=== PATIENT | male | born 1960 | race African-American/Black ===

== ENCOUNTER 2017-01-07 16:26 | Emergency (ER) | payer BC, SELFPAY ==
[2017-01-07] MEDS ORDERED: Morphine Sulfate 2 MG/ML SYRINGE ONE (16:37)
[2017-01-07] MEDS ORDERED: HYDROcodone/Acetaminophen 5/325 mg Tablet ONE (16:37)
--- NOTE | 2017-01-07 17:10 | RAD ---
TWO VIEWS OF THE LEFT THUMB: 01/07/17 INDICATION: Cut left thumb on a table saw. FINDINGS: There is soft tissue laceration involving the palmar aspect of the thumb distal phalanx. No retained foreign body is evident. A small suspected sesamoid is seen at the IP joint. No definite displaced fracture is evident. There is a small radioopaque density seen within the soft tissues adjacent to t he palmar and radial aspect of the index finger proximal phalanx which may reflect a retained metall ic foreign body. IMPRESSION: 1. Soft tissue laceration of the left thumb. No definite acute fracture is demonstrated. 2. Suspected radiopaque foreign body within the soft tissues of the left index finger base. POS: [facility]
[2017-01-07] MEDS ORDERED: Bupivacaine 0.5% 10 ML VIAL ONE (17:15)
[2017-01-07] MEDS ORDERED: Sodium Chloride 0.9% 1,000 ML ONE (17:36)
[2017-01-07] MEDS ORDERED: Ibuprofen 800 MG TAB ONE (18:05)
[2017-01-07] MEDS ORDERED: Cephalexin 500 MG CAP ONE (18:06)
== END 2017-01-07 18:46 | disposition home or self-care (01) ==
LOC: NAV ERS 16:26
DX: S61.012A Laceration without foreign body of left thumb without damage to nail, initial encounter (principal); W45.8XXA Other foreign body or object entering through skin, initial encounter
CPT/HCPCS: 12042; 94760; 96360; 96372; J2270; J3490; J7050

== ENCOUNTER 2017-01-10 17:15 | Emergency (ER) | payer SELFPAY | END 2017-01-10 18:33 | disposition home or self-care (01) | LOC: NAV ERS 17:15 | DX: S61.012D Laceration without foreign body of left thumb without damage to nail, subsequent encounter (principal); Z79.2 Long term (current) use of antibiotics; Z79.891 Long term (current) use of opiate analgesic; W45.8XXD Other foreign body or object entering through skin, subsequent encounter | CPT/HCPCS: 99282 ==

== ENCOUNTER 2020-08-25 18:49 | Emergency (ER) | payer OTHER ==
[~2020-08-25 18:49] MED LIST: Iopamidol 370 76% 100 ML VIAL ONE
[2020-08-25 19:39] LABS: #Basophils 0.1 thou/uL (0.0-0.2); #Eosinphils 0.1 thou/uL (0.0-0.7); #Monocytes 0.4 thou/uL (0.11-0.59); #Neutrophils 1.7 thou/uL (1.40-6.50); %Lymphocytes 46.5 % (21.0-51.0); %Monocytes 10.4 % (0.0-10.0); %Neutrophils 39.2 % (42.0-75.0); Hemoglobin 13.3 g/dL (14.0-18.0); Mean Corpuscular HGB CONC 31.6 g/dL (32.0-36.0); Mean Corpuscular Hemoglobin 27.1 pg (27.0-31.0); Mean Corpuscular Volume 85.8 fL (78.0-98.0); Mean Platelet Volume 6.6 fL (7.4-10.4); Platelet Count 296 thou/uL (130-400); RBC Distribution Width 12.7 % (11.5-14.5); Red Blood Cell (RBC) Count 4.92 mill/uL (4.70-6.10); White Blood Cell (WBC) Count 4.2 thou/uL (4.8-10.8)
[2020-08-25 19:53] LABS: ALT (SGPT) 20 U/L (8-55); AST (SGOT) 23 U/L (5-34); Albumin 3.7 g/dL (3.4-4.8); Alkaline Phosphatase 74 U/L (40-110); Anion Gap 13 mmol/L (10-20); BUN (Urea Nitrogen) 17 mg/dL (8.4-25.7); Bilirubin, Total 0.5 mg/dL (0.2-1.2); Calc. Creatinine Clearance 0 mL/min (70-130); Calcium 8.7 mg/dL (7.8-10.44); Carbon Dioxide 21 mmol/L (23-31); Chloride 107 mmol/L (98-107); Glucose 103 mg/dL (80-115); Potassium 4.4 mmol/L (3.5-5.1); Protein, Total 6.7 g/dL (5.8-8.1); Sodium 137 mmol/L (136-145)
--- NOTE | 2020-08-25 20:09 | RAD ---
EXAM: CHEST ONE VIEW HISTORY: Dyspnea/shortness of breath. Possible Covid exposure. COMPARISON: None FINDINGS: The cardiac silhouette and pulmonary vasculature are within normal limits. No consolidation or pleura l fluid is seen The osseous structures are intact. IMPRESSION: No acute cardiopulmonary process.
--- NOTE | 2020-08-25 21:10 | CT ---
CT ANGIOGRAM THORAX WITH IV CONTRAST AND 3-D RECONSTRUCTIONS CLINICAL INDICATION: Dyspnea and shortness of breath since last night. Patient states possible Covid exposure. Chest tight ness. COMPARISON: None FINDINGS: Pulmonary arteries: No filling defects are seen in the pulmonary arteries to suggest a pulmonary embo danny. Aorta: Vascular calcifications are seen in thoracic aorta. Thoracic aorta is normal in caliber withou t evidence of an aortic dissection Lungs: Linear scarring versus atelectasis is seen in the right middle lobe. There is minimal hazy den sity left lung base probably attributable to atelectasis. Linear scarring or atelectasis is also seen in the lingula. Calcified granuloma is seen in the lingula. No noncalcified pulmonary nodule, ma ss, or pleural effusion is seen. Mediastinum: No enlarged lymph nodes are seen by CT size criteria. Vascular calcifications are seen i n the coronary arteries. Thyroid gland: Grossly within normal limits for Osseous structures: Multilevel degenerative changes in the spine Chest wall: Fat density structure is again seen anterior medial to the superior margin of the left pe ctoralis muscle probably due to lipoma. Upper abdomen: A 4.4 cm hypodense cystic lesion is seen in the superior pole left kidney demonstratin g fluid attenuation most compatible with a cyst. Splenic and hepatic granulomata are identified. IMPRESSION: 1. No CT evidence of a pulmonary embolus.
[2020-08-26 18:38] LABS: SARS-CoV-2 MS2 Positive; SARS-CoV-2 N Gene Positive; SARS-CoV-2 S Gene Positive; SARS-CoV-2 by NAA DETECTED (NotDetected); SARS-CoV-2 orf1ab Positive
== END 2020-08-25 22:00 | disposition home or self-care (01) ==
LOC: NAV ERS 18:49
DX: U07.1 COVID-19 (principal); J20.9 Acute bronchitis, unspecified; J06.9 Acute upper respiratory infection, unspecified; Z87.891 Personal history of nicotine dependence
CPT/HCPCS: 71045; 71275; 80053; 84484; 85025; 85379; 87635; 93005; Q9967; U0003

== ENCOUNTER 2020-09-03 15:52 | Emergency (ER) | payer OTHER, SELFPAY ==
[2020-09-03 16:30] LABS: Bilirubin Negative (Negative); Blood, Urine Large (Negative); Clarity Slightly Cloudy (Clear); Glucose, Urine (Dipstick) Negative (Negative); Ketone, Urine Trace mg/dL (Negative); Leukocyte Moderate (Negative); Nitrite Positive (Negative); Protein, Urine (Dipstick) 100 mg/dL (Neg-Trace); Specific Gravity, Urine 1.025 (1.005-1.030)
[2020-09-03 16:36] LABS: RBC/HPF Greater than 50 HPF (0-3); Squamous Epithelial 0-3 HPF (0-3); WBC/HPF Greater Than 50 HPF (0-3)
[2020-09-03 16:37] LABS: Bacteria/HPF 1+ HPF (None Seen); Yeast-Budding 1+ HPF (None Seen)
[2020-09-03] MEDS ORDERED: Sodium Chloride 0.9% 1,000 ML ONE (16:41)
[2020-09-03] MEDS ORDERED: Sodium Chloride 0.9% 100 ML ONE (16:41)
[2020-09-03] MEDS ORDERED: cefTRIAXone\\ROCEPHIN 2 GM VIAL ONE (16:41)
[2020-09-03] MEDS ORDERED: Acetaminophen 500 MG TAB ONE (16:41)
[2020-09-03 17:01] LABS: #Basophils 0.1 thou/uL (0.0-0.2); #Lymphocytes 1.7 thou/uL (1.20-3.40); #Monocytes 0.7 thou/uL (0.11-0.59); #Neutrophils 6.4 thou/uL (1.40-6.50); %Basophils 0.9 % (0.0-1.0); %Eosinophils 0.4 % (0.0-10.0); %Monocytes 7.6 % (0.0-10.0); %Neutrophils 72.2 % (42.0-75.0); Hemoglobin 14.7 g/dL (14.0-18.0); Mean Corpuscular HGB CONC 31.9 g/dL (32.0-36.0); Mean Corpuscular Hemoglobin 27.1 pg (27.0-31.0); Mean Corpuscular Volume 84.8 fL (78.0-98.0); Mean Platelet Volume 7.9 fL (7.4-10.4); Platelet Count 176 thou/uL (130-400); RBC Distribution Width 12.6 % (11.5-14.5); Red Blood Cell (RBC) Count 5.42 mill/uL (4.70-6.10); White Blood Cell (WBC) Count 8.8 thou/uL (4.8-10.8)
[2020-09-03 17:02] LABS: Anion Gap 14 mmol/L (10-20); BUN (Urea Nitrogen) 15 mg/dL (8.4-25.7); Calc. Creatinine Clearance 0 mL/min (70-130); Calcium 9.5 mg/dL (7.8-10.44); Carbon Dioxide 24 mmol/L (23-31); Chloride 102 mmol/L (98-107); Glucose 97 mg/dL (80-115); Sodium 136 mmol/L (136-145)
== END 2020-09-03 17:58 | disposition home or self-care (01) ==
LOC: NAV ERS 15:52
DX: N39.0 Urinary tract infection, site not specified (principal); N50.89 Other specified disorders of the male genital organs; Z87.891 Personal history of nicotine dependence
CPT/HCPCS: 36415; 51798; 80048; 81003; 81015; 83605; 85025; 87077; 87086; 87186; 96365; J0696; J3490; J7050

== ENCOUNTER 2023-09-29 12:19 | Outpatient (CLI) | payer OTHER | END 2023-09-29 12:20 | disposition home or self-care (01) | LOC: NAV RAD 12:19 | PROVIDERS: ATTEND Nurse Practitioner Family | DX: M54.50 Low back pain, unspecified (principal); R09.02 Hypoxemia; M51.36 Other intervertebral disc degeneration, lumbar region; M47.816 Spondylosis without myelopathy or radiculopathy, lumbar region | CPT/HCPCS: 71046; 72100 ==